=== PATIENT | female | born 1970 | race Caucasian/White ===

== ENCOUNTER 2017-06-03 06:40 | Emergency (ER) | payer OTHER ==
[~2017-06-03] VITALS: Ht 154.9 cm; Wt 80.7 kg
[~2017-06-03 06:40] MED LIST: ABILIFY2 MG PO; ADDERALL XR 2525 MG PO; ADDERALL15 MG PO; ADDERALL20 MG PO; ANTIVERT25 MG PO; BENADRYL50 MG PO; BENTYL10 MG PO; BIOTIN1000 MICRO PO; CELEBREX200 MG PO; CHROMIUM PIC1000 MCG PO; COCONUT OIL1000 MG PO; COLACE100 MG PO; CYMBALTA60 MG PO; DAILY VITAMIN1 EAC8 PO; DILAUDID2 MG PO; Effexor XR PO; FIBER500 MG PO; FLEXERIL10 MG PO; FLOMAX0.4 MG PO; Flovent 110 mcg IH; HYDROCODON-ACE1 EAC7 PO; IBUPROFEN800 MG PO; K-DUR10 ME2 PO; KERATIN PO; LOMOTIL TABLET1 EACH PO; MEGA BIOTIN10000 MCG PO; MELATONIN10 M1 PO; MELATONIN10 M2 PO; MOBIC15 MG PO; MOTRIN600 MG PO; MOTRIN800 MG PO; MULTIPLE VITAM1 EACH PO; MULTIVITAMIN1 EAC2 PO; Norvasc PO; PERCOCET 5/31 TABLET PO; PRAVACHOL10 MG PO; PRILOSEC40 MG PO; PROBIOTIC1 EAC2 PO; PriLOSEC PO; RISPERDAL0.5 MG PO; ROZEREM8 MG PO; SUPER B COMP1 TABLET PO; THERAGRAN1 TABLET PO; TORADOL10 MG PO; VENTOLIN HFA18 GM IH; VITAMIN D35000 UNIT PO; VITAMIN D5000 INTUN PO; VOLTAREN 1% GE100 GM TP; Vicodin,Lortab 5/500 PO; XANAX0.25 MG PO; ZOFRAN ODT4 MG PO; ZOFRAN4 MG PO; risperDAL PO
[2017-06-03 07:06] LABS: HEMATOCRIT 38.6 % (36.0-46.0); MCH 31.6 PG (29.0-34.0); MCHC 33.9 G/DL (30.0-36.0); MCV 93.2 FL (83-99); MEAN PLAT.VOLUME 9.8 uM^3 (9.5-12.4); PLATELET COUNT 198 K/uL (156-360); RBC DIS.WIDTH-CV 13.7 % (11.8-14.6); RBC DIS.WIDTH-SD 46.9 % (39-53); RED BLOOD COUNT 4.14 M/uL (3.80-5.20); WHITE BLOOD COUNT 4.4 K/uL (4.1-10.2)
[2017-06-03 07:37] LABS: INTERNAL CONTROL VALID? YES; MONOSPOT (MONONUCLEOSIS SEROL) NEGATIVE
[2017-06-03 08:01] VITALS: BP 137/84
[2017-06-04] MEDS ORDERED: AUGMENTIN875 MG PO (21:22)
[2017-06-04] MEDS ORDERED: PERCOCET 5/31 TABLET PO (21:22)
== END 2017-06-03 08:02 | disposition home or self-care (01) ==
LOC: EME 06:40
PROVIDERS: Nurse Practitioner Family
DX: J03.90 Acute tonsillitis, unspecified (principal); Z88.8 Allergy status to other drugs, medicaments and biological substances; Z91.030 Bee allergy status
CPT/HCPCS: 85027; 86308; 87651 90; 99281; 99283; J1100

== ENCOUNTER 2017-06-04 18:32 | Emergency (ER) | payer OTHER ==
[~2017-06-04] VITALS: Ht 154.9 cm; Wt 83.7 kg
[2017-06-04 19:03] LABS: HEMATOCRIT 38.5 % (36.0-46.0); MCH 32.1 PG (29.0-34.0); MCHC 34.5 G/DL (30.0-36.0); MEAN PLAT.VOLUME 10.1 uM^3 (9.5-12.4); PLATELET COUNT 198 K/uL (156-360); RBC DIS.WIDTH-CV 13.3 % (11.8-14.6); RED BLOOD COUNT 4.14 M/uL (3.80-5.20); WHITE BLOOD COUNT 5.4 K/uL (4.1-10.2)
[2017-06-04 19:24] LABS: CHLORIDE 100 mEq/L (99-109); SODIUM 138 mEq/L (136-147)
[2017-06-04 19:25] LABS: GLUCOSE 97 mg/dL (70-99)
[2017-06-04 19:27] LABS: ANION GAP 13 MEQ/L (2-14)
[2017-06-04 19:29] LABS: GFR ESTIMATE (CALCULATED) > 59 mL/min/
[2017-06-04 19:30] LABS: UREA NITROGEN (BUN) 14 mg/dL (9-23)
[2017-06-04] MEDS ORDERED: AUGMENTIN875 MG PO (21:22)
[2017-06-04] MEDS ORDERED: PERCOCET 5/31 TABLET PO (21:22)
[2017-06-04 22:25] VITALS: BP 130/76
== END 2017-06-04 22:28 | disposition home or self-care (01) ==
LOC: EME 18:32
PROVIDERS: Nurse Practitioner Family
DX: J36 Peritonsillar abscess (principal); Z88.8 Allergy status to other drugs, medicaments and biological substances
CPT/HCPCS: 70491; 80048; 85027; 99281; 99285; J2270; J3010; J7030

== ENCOUNTER 2017-06-05 08:49 | Emergency (ER) | payer OTHER ==
[~2017-06-05] VITALS: Ht 154.9 cm; Wt 82.2 kg
[~2017-06-05 08:49] MED LIST changes: +AUGMENTIN875 MG PO
[2017-06-05 10:11] LABS: HEMATOCRIT 35.5 % (36.0-46.0); MCH 31.6 PG (29.0-34.0); MCHC 34.1 G/DL (30.0-36.0); MCV 92.7 FL (83-99); MEAN PLAT.VOLUME 10.1 uM^3 (9.5-12.4); PLATELET COUNT 191 K/uL (156-360); RBC DIS.WIDTH-CV 13.3 % (11.8-14.6); RBC DIS.WIDTH-SD 45.4 % (39-53); RED BLOOD COUNT 3.83 M/uL (3.80-5.20); WHITE BLOOD COUNT 4.7 K/uL (4.1-10.2)
[2017-06-05 10:21] LABS: CHLORIDE 104 mEq/L (99-109); POTASSIUM 3.5 mEq/L (3.7-5.4); SODIUM 138 mEq/L (136-147)
[2017-06-05 10:22] LABS: GLUCOSE 97 mg/dL (70-99)
[2017-06-05 10:24] LABS: ANION GAP 8 MEQ/L (2-14)
[2017-06-05 10:26] LABS: GFR ESTIMATE (CALCULATED) > 59 mL/min/
[2017-06-05 10:27] LABS: UREA NITROGEN (BUN) 6 mg/dL (9-23)
[2017-06-05 11:05] LABS: EOSINOPHIL (%) 0.6 % (0-5); IMMATURE GRANULOCYTE (%) 0.2 % (0.0-0.7); MONOCYTE (%) 14.3 % (3-12); MONOCYTE COUNT 0.7 K/uL (0-0.8); NEUTROPHIL (%) 64.3 % (45-76)
[2017-06-05 11:33] VITALS: BP 141/77
== END 2017-06-05 11:34 | disposition home or self-care (01) ==
LOC: EME 08:49
PROVIDERS: Emergency Medicine
DX: J36 Peritonsillar abscess (principal); K21.9 Gastro-esophageal reflux disease without esophagitis; I10 Essential (primary) hypertension; E78.5 Hyperlipidemia, unspecified; J45.909 Unspecified asthma, uncomplicated; F41.9 Anxiety disorder, unspecified; F32.9 Major depressive disorder, single episode, unspecified; F17.200 Nicotine dependence, unspecified, uncomplicated; Z87.442 Personal history of urinary calculi; Z98.84 Bariatric surgery status; Z88.8 Allergy status to other drugs, medicaments and biological substances
CPT/HCPCS: 80048; 85025; 99281; 99285; J0295; J1100; J2270; J7030; J7050